=== PATIENT | male | born 1955 | race Caucasian/White ===

== ENCOUNTER 2025-01-01 17:15 | Inpatient (IN) | payer MEDICARE, OTHER ==
[~2025-01-01] VITALS: Ht 185.4 cm; Wt 133.5 kg
[2025-01-01 18:00] LABS: BASOPHILS 0.7 % (0-2); EOSINOPHILS 6.8 % (0-6); HEMATOCRIT 46.1 % (35.0-50.0); HEMOGLOBIN 15.8 g/dL (12.0-18.0); MCH 31.7 (27-36); MCHC 34.2 g/dl (30-36); MCV 92.7 fl (81-99); MONOCYTES 12.8 % (0-12); NEUTROPHILS 63.7 % (39-80); PLATELET COUNT 149 K/uL (140-440); RBC 4.97 M/ul (4.3-5.7)
[2025-01-01] MEDS ORDERED: ondansetron HCL 4 MG/2 ML VIAL IV ONE ×2 (18:00→19:15)
[2025-01-01 18:25] LABS: ALBUMIN 3.7 g/dL (3.4-5.0); ALBUMIN/GLOBULIN RATIO 0.93 (1.1-2.4); ANION GAP 15.3 (7-21); BILIRUBIN, TOTAL 1.8 mg/dL (0.2-1.0); BUN/CREATININE RATIO 11.8 (6.0-28.6); CALCIUM 9.3 mg/dL (8.5-10.1); CREATININE, SERUM 1.44 mg/dL (0.70-1.30); POTASSIUM 4.3 mmol/L (3.5-5.1); PROTEIN, TOTAL 7.7 g/dL (6.4-8.2)
[2025-01-01 18:50] LABS: BILIRUBIN, URINE NEGATIVE (negative); BLOOD/HGB, URINE NEGATIVE (Negative); KETONE, URINE NEGATIVE (Negative); LEUK ESTERASE, URINE NEGATIVE (negative); NITRITE, URINE NEGATIVE (negative); PH, URINE 5.5 (5-7)
[2025-01-01] MEDS ORDERED: SODIUM CHLORIDE 0.9% 1,000 ML IV SCH (19:15)
[2025-01-01] MEDS ORDERED: HYDROmorphone HCL 1 MG/ML SYR IV PRN ×2 (20:00→22:00)
[2025-01-01] MEDS ORDERED: LACTATED RINGER'S 1,000 ML IV SCH (22:00)
[2025-01-01] MEDS ORDERED: ondansetron HCL 4 MG/2 ML VIAL IV PRN (22:00)
--- NOTE | 2025-01-01 22:10 | NUR ---
PT ADMITTED TO ROOM 112 VIA STRETCHER FROM ER. PT ABLE TO TRANSFER SELF TO BED. VSS. O x 4. REPORTS GENERALIZED ABD PAIN 05/27. LSC DIM TO BASES. HRR. BT HYPO. ABD OBESE, FIRM, TENDER TO LOWER QUADRANTS. DENIES NAUSEA. NPO. LBM 3 DAYS AGO. DUE TO VOID. RAC IV INFUSING LR @ 125MLS/HR. PRN DILAUDID ADMNISTERED PER EMAR. WARM BLANKET PROVIDED. CALL LIGHT WITHIN REACH.
--- NOTE | 2025-01-02 00:20 | NUR ---
PT SLEEPING SOUNDLY ON LEFT SIDE. APPEARS COMFORTABLE. IVF INFUSING.
--- NOTE | 2025-01-02 02:18 | NUR ---
PT SLEEPING BETWEEN CARE. VSS. ON RA. BT STILL HYPOACTIVE. DENIES ABD PAIN/NAUSEA AT THIS TIME. NPO. IVF INFUSING.
--- NOTE | 2025-01-02 04:09 | NUR ---
PT CALLED FOR PAIN MED, REPORRTS ABD CRAMPING AND NECK PAIN. MEDICATED W/ PRN IV DILAUDID PER EMAR. DENIES ANY OTHER NEEDS AT THIS TIME.
--- NOTE | 2025-01-02 06:37 | NUR ---
PT SLEEPING SOUNDLY, APPEARS COMFORTABLE. CALL LIGHT WITHIN REACH.
--- NOTE | 2025-01-02 07:05 | NUR ---
REPORT REC'D FROM KATIE ISSA. PT RESTING COMFORTABLY IN BED, O2 IN PLACE, RL INFUSING TO R AC AT 125/HR. CALL BASILIO IN REACH, SIDERAILS UP X2, BED LOW POSITION AND LOCKED.
--- NOTE | 2025-01-02 09:02 | NUR ---
PATIENT IS IN BED AT THIS. LITHOGRAPHY CONTACT WORKER CHARTED VITALS AND I&O'S. CALL LIGHT WITH IN REACH, NOTHING ELSE NEEDED AT THIS TIME.
--- NOTE | 2025-01-02 10:05 | NUR ---
PT REMAINS IN BED, AT BEDSIDE. ENCOURAGED TO GET OOB TO CHAIR. DECLINES AT THIS TIME. PT FEELING BETTER WITH PAIN RATING.
--- NOTE | 2025-01-02 12:05 | NUR ---
PT OOB TO CHAIR. CALL BASILIO IN REACH, O2 IN PLACE AT 1LNC. CALL BASILIO IN REACH, CHAIR LOCKED.
[2025-01-02] MEDS ORDERED: KETOROLAC TROMETHAMINE 30 MG/ML VIAL IV PRN (13:00)
[2025-01-02] MEDS ORDERED: ondansetron HCL 4 MG/2 ML VIAL IV PRN (13:00)
[2025-01-02] MEDS ORDERED: LACTATED RINGER'S 1,000 ML IV SCH (13:00)
[2025-01-02] MEDS ORDERED: FAMOTIDINE 20 MG/ 2 ML VIAL IV SCH (13:01)
--- NOTE | 2025-01-02 13:58 | NUR ---
PT REMAINS IN CHAIR, LINEN CHANGED. PT FEELING RELIEF FROM TORADOL
--- NOTE | 2025-01-02 15:39 | NUR ---
PT CONTINUES TO SIT UP IN THE RECLINER WATCHING TELEVISION, NO C/O VOICED AT THIS TIME.
--- NOTE | 2025-01-02 16:52 | NUR ---
PT IN BED AT THIS TIME. PT DECLINES PAIN MEDICATION. CALL BASILIO IN REACH, BED IN LOW POSITION AND LOCKED.
--- NOTE | 2025-01-02 17:06 | NUR ---
PATIENT IS IN BED AT THIS TIME, HITCH TECHNICIAN CHARTED VITALS, PATIENT IS NPO HAS NOT VIODED. CALL LIGHT WITH IN REACH, NOTHING ELSE NEEDED AT THIS TIME.
--- NOTE | 2025-01-02 17:51 | NUR ---
PT PLEASANT AND COOPERATIVE WITH CARE. PT OOB TO CHAIR X2. MEDICATED X3 FOR NECK,BACK,AND ABDOMINAL PAIN. IV LR INFUSING AT 100ML/HR. PT USING CALL BASILIO APPROPRIATELY. CALL BASILIO IN REACH, BED IN LOW POSITION AND LOCKED.
--- NOTE | 2025-01-02 18:13 | NUR ---
PAIN REASSESSMENT COMPLETED EARLY THIS RN IS RECEIVING ED ADMISSION AT THIS TIME.
--- NOTE | 2025-01-02 19:20 | NUR ---
shift report received from dayshift misa robledo at bedside. pt recently ambulating in hallway, spo2 91% on ra, hr 67. pt back in bed, denies needs or concerns. iv fluids resumed. iv site wnl and infuses wnl. various scars to abd, pt denies nausea. call light in reach and board updated.
--- NOTE | 2025-01-02 19:32 | NUR ---
PT AMBULATED IN CALIX X 1.5 LAPS WITH FWW, SBA. NO CHAUHAN, SPO2 91% ON RA, HR 67
--- NOTE | 2025-01-02 20:50 | NUR ---
ASSESSMENT COMPLETE, SCHEDULED MEDICATION GIVEN-SEE EMAR. pt REPORTS PAIN TO ABD TOLERABLE, DENIES NEED FOR PAIN MEDICATION AT THIS TIME. pt REPORTS PASSING GAS RECENTLY WHILE LAYING ON HIS SIDE IN BED, DENIES NAUSEA. BT ACTIVE. IV SITE WNL, FLUIDS INFUSING DIRECTED. +1 EDEMA NOTED TO BLE, REPORTS BASELINE NUMBNESS AND TINGLING. HEAT PACK TO NECK R/T NECK PAIN FROM NECK STENOSIS PER pt. NO ADDITIONAL NEEDS, CALL LIGHT IN REACH.
--- NOTE | 2025-01-02 21:30 | NUR ---
INFORMED BY FILM DEVELOPER THAT pt REQUESTING PAIN MEDICATION R/T NECK PAIN, THIS RN IN ROOM AND pt RESTING QUIETLY IN BED. ON RA, RR EVEN AND UNLABORED. NO DISTRESS NOTED, pt ALLOWED TO REST, WILL MONITOR. CALL LIGHT IN REACH.
--- NOTE | 2025-01-02 23:28 | NUR ---
REPORT RECEIVED FROM KATIE OGLESBY, ASSUMED CARE OF pt. ROUNDED ON pt. RESTING IN BED AWAKE. NEW BAG IVF INFUSING WNL. URINAL EMPTIED, CONCENTRATED COLOR. CALL LIGHT IN REACH. DENIES ANY NEEDS.
--- NOTE | 2025-01-03 00:01 | NUR ---
PLACED SCD'S ON PATIENT. PATIENT HAD NO NEEDS AT THIS TIME. CALL LIGHT IN REACH.
--- NOTE | 2025-01-03 02:15 | NUR ---
CHECKED ON pt. RESTING IN BED ON LEFT SIDE, BREATHING EQUAL AND UNLABORED. NO DISTRESS NOTED.
--- NOTE | 2025-01-03 03:20 | NUR ---
IV PUMP ALARMING. DISTAL OCCLUSION. SITE FLUSHED WNL. pt SLEEPING, ROLLS OVER, NO DISTRESS NOTED.
[2025-01-03 05:25] LABS: BASOPHILS 1.1 % (0-2); EOSINOPHILS 10.3 % (0-6); HEMATOCRIT 41.1 % (35.0-50.0); HEMOGLOBIN 13.9 g/dL (12.0-18.0); LYMPHOCYTES 18.7 % (24-44); MCH 31.4 (27-36); MCHC 33.7 g/dl (30-36); MONOCYTES 15.2 % (0-12); NEUTROPHILS 54.7 % (39-80); PLATELET COUNT 146 K/uL (140-440); RBC 4.43 M/ul (4.3-5.7); RDW 13.9 (10.5-15.0)
--- NOTE | 2025-01-03 05:35 | NUR ---
pt AWAKENS TO VOICE, VSS. ASSESSMENT COMPLETE. BOWEL TONES HYPOACTIVE, FLATUS PRESENT, ABD SOFT, NON-TENDER WITH PALPATION. pt DENIES TOILETING OR ADDITIOANL NEEDS. IVF INFUSING WNL. CALL LIGHT IN REACH.
[2025-01-03 05:43] LABS: ALBUMIN 2.9 g/dL (3.4-5.0); ALBUMIN/GLOBULIN RATIO 0.94 (1.1-2.4); ANION GAP 13.4 (7-21); BILIRUBIN, TOTAL 1.8 mg/dL (0.2-1.0); BUN/CREATININE RATIO 11.71 (6.0-28.6); CALCIUM 8.8 mg/dL (8.5-10.1); CREATININE, SERUM 1.28 mg/dL (0.70-1.30); POTASSIUM 4.4 mmol/L (3.5-5.1)
--- NOTE | 2025-01-03 07:18 | NUR ---
VERBAL REPORT RECEIVED FROM KATIE MEADE. PT RESTS IN BED WITH EYES CLOSED, RESP EVEN AND UNLABORED.
--- NOTE | 2025-01-03 08:43 | NUR ---
Board has been updated and call light has been placed within reach
--- NOTE | 2025-01-03 11:42 | NUR ---
PT SITS UP IN RECLINER, AWAKE AND ALERT, CALL LIGHT IN REACH, NO REQUESTS AT THIS TIME.
--- NOTE | 2025-01-03 15:56 | NUR ---
PT REPORTS HE HAD A LARGE FORMED/SOFT BM HOWEVER, HE FLUSHED IT AND IT WAS NOT OBSERVED BY STAFF. PT REPORTS FLATUS AND STATES, "I FEEL MUCH BETTER." DENIES NAUSEA OR ABDOMINAL TENDERNESS. PT TOLERATING CLEAR LIQUID DIET WELL. SCDS ON TO BLE FROM KNEES TO ANKLES. CALL LIGHT IN REACH, NO REQUESTS AT THIS TIME.
--- NOTE | 2025-01-03 17:56 | NUR ---
DR. NAPOLES NOTIFIED OF PT PASSING LARGE BM. NEW ORDER RECEIVED TO ADVANCE DIET TO FULL LIQUIDS.
--- NOTE | 2025-01-03 19:58 | NUR ---
in bed, awake, alert and oriented. On room air, clear lungs dim at baes, no cough at this time. abd large soft, LBM today a few minutes ago, medium sized, soft. SCDS to legs off at his request at this time. Generalized edema to hands and feet. no c/o pain. IVF infusing RAC. tolerating full liquid diet, jello given. Pleasant and cooperative
--- NOTE | 2025-01-03 20:57 | NUR ---
CALL LIGHT ANSWERED. pt UP INDEPENDENT TO RESTROOM FOR VOID AND LIQUID BM, pt FLUSHED BEFORE RN IN ROOM. REPORTS BROWN LIQUID STOOL. IVF INFUSING WNL. pt BACK IN BED, CALL LIGHT AND PERSONAL SUPPLIES WITHIN REACH.
--- NOTE | 2025-01-03 21:41 | NUR ---
IN BED, WATCHING TV, C/O 05/27 BACK AND LEG PAIN FROM SPINAL STENOSIS. STATED. MEDICATED WITH TORADOL IV
--- NOTE | 2025-01-03 22:33 | NUR ---
WATCHINGT V, NO C/O PAIN. ivf INFUSING
--- NOTE | 2025-01-04 00:09 | NUR ---
resting, eyes closed, no s/sx distress, on room air, turns and repositions self in bed. IVF infusing
--- NOTE | 2025-01-04 02:39 | NUR ---
Resting, no ss/x distress, IVF infusing, scds off his requests.
--- NOTE | 2025-01-04 05:38 | NUR ---
AWAKENS EASILY, ON ROOM AIR, NO C/O PAIN AT THIS TIME. UP TO brp, VOIDED LARGE AMOUNT qs MEDIUM YELLOW COLORED URINE. ivf INFUSING, BACK TO BED, INDEPENDENT WITH MINIMUM OF ASSIST. TOLERATING LIQUIDS WELL, NO C/O N/V. CURRENTLY AWAKE, WAS WALKING IN ROOM, SITTING EDGE OF BED
--- NOTE | 2025-01-04 07:02 | NUR ---
VERBAL REPORT RECEIVED FROM KATIE ISRAEL. PT RESTS IN BED WITH EYES CLOSED, RESP EVEN AND UNLABORED.
--- NOTE | 2025-01-04 08:14 | NUR ---
PATIENT IN CHAIR AT THIS TIME. QUARRYING MANAGER WENT INTO PATIENTS ROOM FOR HOURLY ROUNDS. QUARRYING MANAGER ASSISTED PATIENT TO CHAIR. CALL LIGHT WITHIN REACH, NO FURTHER NEEDS AT THIS TIME.
--- NOTE | 2025-01-04 08:28 | NUR ---
PATIENT SALINE LOCKED TO GO TO X-RAY WITH LANE VIA WHEELCHAIR.
--- NOTE | 2025-01-04 09:17 | NUR ---
UR CLINICAL REVIEW: 2 MN FOR VERSALUS-PER REVIEW MEETS INPT CRITERIA FOR SBO WITH NEED FOR MONITORING/SERIAL IMAGING MEDICARE INPT 01/02/25 @ 1302 ORDER MATCHES REG NO AUTH REQUIRED PER MEDICARE GUIDELINES DISCHARGE TO HOME WHEN STABLE. ANTICIPATE 24-48 HRS
--- NOTE | 2025-01-04 09:33 | NUR ---
PATIENT IN BED AT THIS TIME. SECRETARY OFFICE CLERK CHARTED VITALS AND I7O'S. PATIENT IS GOING TO CALL WHEN HE WANTS TO TAKE A SHOWER. CALL LIGHT WITHIN REACH, NO FURTHER NEEDS AT THIS TIME.
--- NOTE | 2025-01-04 09:47 | NUR ---
DR. NAPOLES INTO SEE PT.
--- NOTE | 2025-01-04 11:20 | NUR ---
PUDDING, CRACKERS AND MILK PROVIDED TO PT PER REQUESTS.
--- NOTE | 2025-01-04 12:39 | NUR ---
VISITED DURING SPIRITUAL CARE ROUNDS. PT IN OVERALL GOOD SPIRITS, STATES FEELING MUCH BETTER, READY TO GO HOME. BACK STAYER PROVIDED SUPPORTIVE PRESENCE, RELAYED REQUEST FOR INFORMATION TO MEDICAL CARE TEAM, PROVIDED PRAYER, FACILITATED INTERACTION WITH THERAPY ANIMAL. PT EXPRESSED NEDA, GRATITUDE.
--- NOTE | 2025-01-04 12:48 | NUR ---
PT EATS 100% OF LUNCH -LOW FIBER DIET, TOLERATES THIS WELL, DENIES NAUSEA OR ABDOMINAL DISCOMFORT AT THIS TIME. DISCUSSED POC. NO FURTHER QUESTIONS A THIS TIME.
[2025-01-04 13:12] VITALS: BP 148/73
--- NOTE | 2025-01-04 13:13 | NUR ---
PATIENT IN BED AT THIS TIME. CVT RN CHARTED VITALS AND I&O'S. CALL LIGHT WITHIN REACH, NO FURTHER NEEDS AT THIS TIME.
--- NOTE | 2025-01-04 14:00 | NUR ---
Spoke with Gwyn. He states he lives in [place], he cannot remember his street address as he states he just moved. He will get the address from his SO. Pt denies use of DME. States he has a bad back and stenosis. He sees Dr. Wood, but also [facility] in [place]. Pt would like a hospital bed as he states its the best he's slept in a long time. I asked him to discuss this with his PCP. He states he has and Dr. Wood asked him to get further documentation from his back specialist. Pt denies needs, but states concern for food. He does get food stamps and his so works. I gave him a list of the food [place]anto in our area and the phone number for [employer]. He plans on dc to home when cleared medically.
--- NOTE | 2025-01-04 15:45 | NUR ---
PT SITS UP IN BED, AWAKE AND ALERT, SPOUSE AT BEDSIDE. NO REQUESTS AT THIS TIME.
--- NOTE | 2025-01-04 16:08 | NUR ---
Notified by fountain operator, pt SO was here and states she can drive back and forth as gas tank is on E. I asked them to send him by taxi if he is discharged today. I also asked staff to get his street address as there is only a po box in his chart. Pt cannot remember his address as he just moved there.
--- NOTE | 2025-01-04 16:10 | NUR ---
DR. NAPOLES CONTACTED VIA PHONE, UPDATE ON PT TOLERANCE OF LOW FIBER DIET PROVIDED. PT DESIRES TO GO HOME, SPOUSE PRESENT AND READY TO TRANSPORT. DISCHARGE ORDERS RECEIVED. DISCUSSED DISCHARGE INSTRUCTIONS WITH PT AND SPOUSE, BOTH VERBALIZE UNDERSTANDING. IV REMOVED TIP INTACT, GAUZE AND COBAN DRESSING APPLIED TO SITE, PT TOLERATED WELL. PT DRESSES SELF. PT LEAVES MED-SURG AMBULATORY WITH SPOUSE IN NO APPARENT DISTRESS, ESCORTED BY KATIE LAZO.
== END 2025-01-04 14:10 | disposition home or self-care (01) | DRG 387 ==
LOC: ED 17:15 → MS 17:16
PROVIDERS: Emergency Medicine; ADMIT Surgery; ATTEND Surgery
DX: K50.912 Crohn's disease, unspecified, with intestinal obstruction (principal); G89.29 Other chronic pain; M54.2 Cervicalgia; E66.9 Obesity, unspecified; I87.8 Other specified disorders of veins; K43.9 Ventral hernia without obstruction or gangrene; Z90.49 Acquired absence of other specified parts of digestive tract
CPT/HCPCS: 36415; 74019; 74177; 80053; 81003; 83690; 85025; 96376; G0378; J1171; J1885; J2405; J7030; J7121; Q9967

== ENCOUNTER 2025-02-15 09:00 | Inpatient (IN) | payer MEDICARE, OTHER ==
[~2025-02-15] VITALS: Ht 185.4 cm; Wt 131.1 kg
[~2025-02-15 09:00] MED LIST: OXYCODONE HCL5 MG PO
[2025-02-15] MEDS ORDERED: KETOCONAZOLE120 ML TOP (13:02)
[2025-02-15] MEDS ORDERED: KETOCONAZOLE15 GM TOP (13:02)
[2025-02-15] MEDS ORDERED: CLOBETASOL PRO118 ML TOP (13:02)
[2025-02-15] MEDS ORDERED: SODIUM CHLORIDE 0.9% 1,000 ML IV PRN (13:15)
[2025-02-15] MEDS ORDERED: ondansetron HCL 4 MG/2 ML VIAL IV ONE ×2 (13:15→14:00)
[2025-02-15 13:26] LABS: BASOPHILS 0.2 % (0-2); EOSINOPHILS 0.2 % (0-6); HEMATOCRIT 51.5 % (35.0-50.0); HEMOGLOBIN 17.5 g/dL (12.0-18.0); LYMPHOCYTES 3.5 % (24-44); MCV 91.3 fl (81-99); MONOCYTES 6.2 % (0-12); NEUTROPHILS 89.9 % (39-80); PLATELET COUNT 150 K/uL (140-440); RBC 5.64 M/ul (4.3-5.7)
[2025-02-15 13:41] LABS: ALBUMIN 4.2 g/dL (3.4-5.0); ALBUMIN/GLOBULIN RATIO 1.08 (1.1-2.4); ANION GAP 13.2 (7-21); BILIRUBIN, TOTAL 2.2 mg/dL (0.2-1.0); CALCIUM 10.4 mg/dL (8.5-10.1); CREATININE, SERUM 1.2 mg/dL (0.70-1.30); POTASSIUM 4.2 mmol/L (3.5-5.1); PROTEIN, TOTAL 8.1 g/dL (6.4-8.2)
[2025-02-15] MEDS ORDERED: HYDROmorphone HCL 1 MG/ML SYR IV ONE (14:00)
[2025-02-15 15:44] LABS: BILIRUBIN, URINE NEGATIVE (negative); BLOOD/HGB, URINE NEGATIVE (Negative); KETONE, URINE NEGATIVE (Negative); LEUK ESTERASE, URINE NEGATIVE (negative); NITRITE, URINE NEGATIVE (negative)
[2025-02-15] MEDS ORDERED: HYDROmorphone HCL 1 MG/ML SYR IV PRN ×2 (17:00→20:30)
[2025-02-15] MEDS ORDERED: LACTATED RINGER'S 1,000 ML IV SCH (17:00)
[2025-02-15] MEDS ORDERED: ondansetron HCL 4 MG/2 ML VIAL IV PRN ×2 (17:00→22:15)
[2025-02-15 18:48] VITALS: BP 120/85
--- NOTE | 2025-02-15 18:55 | NUR ---
PT ARRIVED TO THE MED SURG ROOM 113 VIA STRETCHER, PT ABLE TO AMBULATE TO BED, SBA W/O DIFFICULTY. NG HOOKED UP TO INTERMIT WALL SUCTION. VSS. BOWEL SOUNDS ACTIVE BILAT UPPER, ABSENT BILAT LOWER. CALL LIGHT IN REACH.
--- NOTE | 2025-02-15 19:25 | NUR ---
REPORT RECEIVED FROM DAY SHIFT RN. PT LYING IN BED ALERT AND ORIENTED. REPORTS ABD PAIN 04/27. PRN FOR PAIN ADMIN PER EMAR. IVF INFUSING PER ORDER. NO FURTHER NEEDS. WHITE BOARD UPDATED. CALL LIGHT IN REACH.
--- NOTE | 2025-02-15 20:10 | NUR ---
CRITICAL LAB VALUE RECEIVED. MD NOTIFIED. NEW TELEPHONE ORDERS RECEIVED VERIFIED WITH READBACK METHOD.
[2025-02-15] MEDS ORDERED: HEParin SOD (PORCINE) 5,000 UNIT/ML SDV SUB-Q ONE (20:30)
--- NOTE | 2025-02-15 20:40 | NUR ---
ADMISSION COMPLETE. EVENING ASSESSMENT COMPLETE. SCHEDULED MEDS ADMIN PER EMAR. PT REPORTS ABD PAIN TOLERABLE. DENIES NAUSEA. NGT TO LIWS WITH PINK DRAINAGE. PT REPORTS HAVING RED JELLO. BOWEL TONES RARE. ABD SLIGHTLY DISTENDED. PT DENIES FLATUS. NEW 20G IV PLACED IN RIGHT UPPER ARM WITH ONE ATTEMPT BY THIS RN. IVF INFUSING PER ORDER. TELE #6 AND SCD'S PLACED. PT ORIENTED TO ROOM AND NURSE CALL LIGHT. NO QUESTIONS OR CONCERNS AT THIS TIME. CALL LIGHT IN REACH.
[2025-02-15 20:53] VITALS: BP 106/89
[2025-02-15 20:57] VITALS: BP 106/89
--- NOTE | 2025-02-15 21:50 | NUR ---
CRITICAL LAB VALUE RECEIVED. MD ON FLOOR AND NOTIFIED. NO ORDERS AT THIS TIME.
[2025-02-15] MEDS ORDERED: PROCHLORPERAZINE EDISYLATE 10 MG/2 ML VIAL IV PRN (22:15)
[2025-02-15] MEDS ORDERED: ACETAMINOPHEN 325 MG TAB PO PRN (22:15)
[2025-02-15] MEDS ORDERED: ACETAMINOPHEN 650 MG SUPP PR PRN (22:15)
--- NOTE | 2025-02-15 22:20 | NUR ---
PT REPORTS ABD PAIN 04/27. PRN FOR PAIN ADMIN PER EMAR. NO FURTHER NEEDS.
[2025-02-16] VITALS (10 sets, daily range): BP systolic 99–138; BP diastolic 52–72
--- NOTE | 2025-02-16 00:08 | NUR ---
PT UP TO SIDE OF BED TO VOID 175 ML CONCENTRATED URINE. BACK TO BED, MUSHTAQ WELL. SCD'S IN PLACE. NGT TO LIWS WITH DARK BROWN DRAINAGE. HOB ELEVATED. NO FURTHER NEEDS. CALL LIGHT IN REACH. BED ALARM FOR SAFETY.
--- NOTE | 2025-02-16 02:24 | NUR ---
PT RESTING WITH EYES CLOSED. AWAKENS EASILY. VS AND I&O OBTAINED. SpO2 88% ON RA. 2L/NC PLACED. PT UP TO SIDE OF BED TO VOID 200 ML CONCENTRATED URINE. GAIT STEADY. BACK TO BED, MUSHTAQ WELL. REPORTS ABD PAIN /. PRN FOR PAIN ADMIN PER EMAR. DENIES NAUSEA. NEW BAG IVF INFUSING PER ORDER. NO FURTHER NEEDS. BED ALARM FOR SAFETY. CALL LIGHT IN REACH.
--- NOTE | 2025-02-16 04:26 | NUR ---
PT RESTING IN BED WITH EYES CLOSED. RESPIRATIONS EVEN. CALL LIGHT IN REACH.
[2025-02-16 05:30] LABS: BASOPHILS 0.3 % (0-2); EOSINOPHILS 2.1 % (0-6); HEMATOCRIT 42.1 % (35.0-50.0); HEMOGLOBIN 14.3 g/dL (12.0-18.0); LYMPHOCYTES 17.9 % (24-44); MCH 31.2 (27-36); MCHC 33.9 g/dl (30-36); MCV 92.1 fl (81-99); MONOCYTES 12.6 % (0-12); NEUTROPHILS 67.1 % (39-80); PLATELET COUNT 128 K/uL (140-440); RBC 4.58 M/ul (4.3-5.7)
--- NOTE | 2025-02-16 05:45 | NUR ---
CCU ALERTED PT HR LOW 34. PT AWAKE IN BED. VS OBTAINED, WNL. PT UP TO SIDE OF BED TO VOID. REPORTS SLIGHT DIZZINESS UPON STANDING. BACK TO BED. NO C/O PAIN OR NAUSEA. NGT TO LIWS WITH DARK BROWN DRAINAGE. BOWEL TONES ACTIVE IN UPPER QUADRANTS, HYPO IN LOWER. PT REPORTS PASSING GAS X 2 SMALL AMOUNTS. NO FURTHER NEEDS AT THIS TIME. CALL LIGHT IN REACH.
[2025-02-16 05:52] LABS: ANION GAP 9.5 (7-21); BILIRUBIN, TOTAL 1.9 mg/dL (0.2-1.0); BUN/CREATININE RATIO 13.95 (6.0-28.6); CALCIUM 8.7 mg/dL (8.5-10.1); CREATININE, SERUM 1.29 mg/dL (0.70-1.30); MAGNESIUM 2.2 mg/dL (1.8-2.4); PHOSPHORUS, INORGANIC 3.4 mg/dL (2.5-4.9); POTASSIUM 4.5 mmol/L (3.5-5.1)
--- NOTE | 2025-02-16 06:30 | NUR ---
MD UPDATED REGARDING MORNING LAB RESULTS AND PT HR.
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
[2025-02-16] MEDS ORDERED: DEXTROSE 5% - LACTATED RINGERS 1,000 ML IV SCH (07:00)
--- NOTE | 2025-02-16 07:19 | NUR ---
RECIEVED SHIFT REPORT. PT IS AWAKE IN BED, HAS CONCERNS ABOUT HEART ISSUE AND RECIEVING PAIN MEDICATIONS. IF HIS HEART WILL INTERFERE WITH GETTING THEM. REASSURED PT THAT WE ARE MONITORING HIS HEART WILL MONITOR WHEN RECIEVING MEDICATIONS AND WE ARE ALSO MONITORING HIS OXYGEN STATUS. PT IS REQUESTING PAIN MEDICATION AT THIS TIME. WILL LOOK OVER MEDICATIONS. CALL LIGHT IN REACH.
[2025-02-16] MEDS ORDERED: TIZANIDINE HCL2 MG PO (07:50)
[2025-02-16] MEDS ORDERED: TRIAMCINOLONE A15 GM TOP (07:51)
--- NOTE | 2025-02-16 07:56 | NUR ---
MORNING ASSESSMENT COMPLETE. PRN PAIN MEDICATION ADMINSITERED (PER EMAR) FOR 5/10 ABD PAIN. PT OTHERWISE RESTING COMFORTABLY IN BED. BOWEL TONES ACTIVE BILAT UPPER, HYPOACTIVE BILAT LOWER, TENDER. PT IS ON 2L NC FOR OXYGEN NEEDS WHEN GIVEN DILAUDID WHILE AT REST, SPO2 96% AT THIS TIME. IVF INFUSING AT THIS TIME. CALL LIGHT IN REACH. PT UPDATED ON ULTRASOUND COMING THIS MORNING.
--- NOTE | 2025-02-16 08:03 | NUR ---
PATIENT IN BED AT THIS TIME. TAVERN CAR ATTENDANT DID HOURLY ROUNDS. CALL LIGHT WITHIN REACH, NO FURTHER NEEDS AT THIS TIME.
[2025-02-16 08:28] LABS: INR 1.08 (0.80-1.30)
[2025-02-16] MEDS ORDERED: ENOXAPARIN SODIUM 40 MG/0.4 ML SYR SUB-Q SCH (09:00)
[2025-02-16] MEDS ORDERED: PANTOPRAZOLE SODIUM 40 MG/10 ML VIAL IV SCH (09:00)
--- NOTE | 2025-02-16 09:28 | NUR ---
UR CLINICAL REVIEW: 2 MN FOR VERSALUS-PER BLIND CLEANER MEETS INPT CRITERIA FOR SBO WITH [facility] MEDICARE INPT 02/15/25 @ 2208 ORDER MATCHES REG NO AUTH REQUIRED PER MEDICARE GUIDELINES DISCHARGE TO HOME WHEN STABLE
--- NOTE | 2025-02-16 09:35 | NUR ---
PATIENT IN BED AT THIS TIME. MANAGER OF CORPORATE COMMUNICATIONS CHARTED VITALS AND I&O'S. CALL LIGHT WITHIN REACH, NO FURTHER NEEDS AT THIS TIME.
--- NOTE | 2025-02-16 09:50 | NUR ---
PATIENT IN BED, METAL BUFFER EMPTIED PATIENTS NG TUBE CANNISTER. CALL LIGHT WITHIN REACH, ULTRASOUND IN AT THIS TIME, NO FURTHER NEEDS.
--- NOTE | 2025-02-16 12:16 | NUR ---
MED REC COMPLETE
--- NOTE | 2025-02-16 13:46 | NUR ---
PATIENT IN BED AT THIS TIME. PUMP SERVICER CHARTED VITALS AND I&O'S. CALL LIGHT WITHIN REACH, NO FURTHER NEEDS AT THIS TIME.
--- NOTE | 2025-02-16 14:20 | NUR ---
pt requested pain medication for 5/10 abd pain, adminsitered (per emar). physical therapy in room to work with pt. at bedside. call light in reach.
--- NOTE | 2025-02-16 14:30 | NUR ---
Spoke with pt. He cont. to live in a [place] with his SO. They are both retired and she drives him to appt. He does not use any DME. He cont. with an NG tube in place. He would like a walker as he uses his SO. He states finances are getting tighter. He does receive food stamps, but is over income for most services. I will ask Dr. Deleon for a PT/OT order to check if he qualifies for a walker. Pt plans on dc to home when medically cleared.
--- NOTE | 2025-02-16 16:46 | NUR ---
PATIENT IN BED AT THIS TIME. THIS SEAM STEAMER WENT INTO PATIENTS ROOM FOR HOURLY ROUNDS. CALL LIGHT WITHIN REACH, NO FURTHER NEEDS AT THIS TIME.
--- NOTE | 2025-02-16 17:12 | NUR ---
pt hr cont. to drop in the 30's on tele - this rn call to ms charge to check on pt. charted hr.
--- NOTE | 2025-02-16 17:25 | NUR ---
REPORT RECIEVED FROM KATIE SIMON. PT LAYING IN BED WITH NG TUBE IN PLACE. PT HAS NO CURRENT CONCERNS AT THIS TIME. PT HAS CALL LIGHT IN REACH. PT IS CURRENTLY TELE #6. PT IS OLIVERIO IN THE LOWER 40'S WITH NO CONCERNS AND REPORT SAID THAT HAS BEEN HIS BASE LINE.
--- NOTE | 2025-02-16 18:01 | NUR ---
SPOKE WITH DR NAPOLES ON PHONE, PT AMB IN CALIX WITH FAMILY, DENIES NEEDS. AWARE OF VOID, ELIZABETH WNL - TRENDING TO STRAW COLOR,
--- NOTE | 2025-02-16 18:05 | NUR ---
PATIENT IN BED AT THIS TIME. ALLIANCE DIRECTOR CHARTED VITALS AND I&O'S. CALL LIGHT WITHIN REACH, NO FURTHER NEEDS AT THIS TIME.
--- NOTE | 2025-02-16 18:19 | NUR ---
PT CALLED CONCERNING PAIN IN THEIR ABD 6-10 PT GIVEN PRN DILAUDED (SEE EMAR). PT HAS NO OTHER CONCERNS AT THIS TIME CALL LIGHT IN REACH.
--- NOTE | 2025-02-16 19:28 | NUR ---
REPORT RECEIVED FROM DAY SHIFT RN. PT LYING IN BED ALERT AND ORIENTED. DENIES NEEDS. WHITE BOARD UPDATED. CALL LIGHT IN REACH.
--- NOTE | 2025-02-16 20:09 | NUR ---
SO JOSE ARMANDO CALLED AND ASKED TO BE TRANSFERRED TO pt ROOM, pt OKAY'D AND JOSE ARMANDO NOW TALKING TO pt VIA ROOM PHONE. pt DENIES NEEDS OR CONCERNS WHEN ASKED. CALL LIGHT IN REACH. PRIMARY RN UPDATED.
--- NOTE | 2025-02-16 21:11 | NUR ---
EVENING ASSESSMENT COMPLETE. NO C/O PAIN OR NAUSEA AT THIS TIME. NGT TO LIWS WITH DARK BROWN DRAINAGE. BOWEL TONES HYPOACTIVE. PT REPORTS FLATUS X 1. ABD SOFT AND DISTENDED. UP TO SIDE OF BED TO VOID 325 ML CONCENTRATED URINE. BACK TO BED, MUSHTAQ WELL. SCD'S IN PLACE. VS AND I&O OBTAINED. TELE #6. SINUS OLIVERIO. PT ON 2L/NC. SpO2 96%. CPOX AT BEDSIDE. HOB >30 DEGREES. PT DENIES QUESTIONS OR CONCERNS. CALL LIGHT IN REACH.
--- NOTE | 2025-02-16 23:38 | NUR ---
PT RESTING IN BED WITH EYES CLOSED. RESPIRATIONS EVEN. CALL LIGHT IN REACH.
[2025-02-17] VITALS (9 sets, daily range): BP systolic 117–150; BP diastolic 51–81
--- NOTE | 2025-02-17 02:05 | NUR ---
VS OBTAINED, WNL. PT REMAINS OLIVERIO. ASYMPTOMATIC. UP TO SIDE OF BED TO USE URINAL WITH SBA. BACK TO BED, MUSHTAQ WELL. ASSESSMENT COMPLETE. FINE CRACKLES NOTED IN BILAT LOWER LUNG BASES. INCENTIVE SPIROMETER PROVIDED WITH EDUCATION. PT DEMONSTRATED PROPER USE. WARM BLANKET PROVIDED. NO FURTHER NEEDS.
--- NOTE | 2025-02-17 03:49 | NUR ---
IV PUMP ALARMING. NEW BAG IVF INFUSING WNL. PT LYING IN BED RESTING WITH EYES CLOSED. SNORING SOFTLY. SpO2 93% WITH 2L/NC. HR 38-40 PER TELE #6. CALL LIGHT IN REACH.
--- NOTE | 2025-02-17 05:30 | NUR ---
LAB IN FOR MORNING DRAW. VS AND I&O OBTAINED. NO C/O PAIN OR NAUSEA AT THIS TIME. ASSISTED PT TO REPOSITION. NO FURTHER NEEDS.
[2025-02-17 05:45] LABS: BASOPHILS 0.3 % (0-2); EOSINOPHILS 3.6 % (0-6); HEMATOCRIT 39.4 % (35.0-50.0); HEMOGLOBIN 13.4 g/dL (12.0-18.0); MCH 31.1 (27-36); MCHC 33.9 g/dl (30-36); MCV 91.9 fl (81-99); MONOCYTES 12.9 % (0-12); NEUTROPHILS 66.2 % (39-80); PLATELET COUNT 111 K/uL (140-440); RBC 4.29 M/ul (4.3-5.7)
[2025-02-17 06:01] LABS: ALBUMIN 2.7 g/dL (3.4-5.0); ALBUMIN/GLOBULIN RATIO 0.93 (1.1-2.4); ANION GAP 7.8 (7-21); BILIRUBIN, TOTAL 1.9 mg/dL (0.2-1.0); BUN/CREATININE RATIO 11.53 (6.0-28.6); CALCIUM 8.3 mg/dL (8.5-10.1); CREATININE, SERUM 1.04 mg/dL (0.70-1.30); MAGNESIUM 1.9 mg/dL (1.8-2.4); PHOSPHORUS, INORGANIC 2.5 mg/dL (2.5-4.9); POTASSIUM 3.8 mmol/L (3.5-5.1); PROTEIN, TOTAL 5.6 g/dL (6.4-8.2)
--- NOTE | 2025-02-17 07:23 | NUR ---
REPORT RECEIVED FROM KATIE LINTON. PT RESTING ON L SIDE, RR EVEN AND UNLABORED. IVF INFUSING WNL. CALL LIGHT AND PERSONAL BELONGINGS IN REACH.
[2025-02-17] MEDS ORDERED: ATROPINE SULFATE 1 MG/10 ML SYR IV PRN (08:00)
--- NOTE | 2025-02-17 08:21 | NUR ---
QUAD SWAB COLLECTED AND SENT TO LAB.
--- NOTE | 2025-02-17 08:29 | NUR ---
MEDICATION ADMINISTERED, SEE MAR. IMAGING ARRIVES. PT REMAINS RESTING IN BED AT THIS TIME, IMAGING REMAINS IN ROOM.
[2025-02-17 09:01] LABS: INFLUENZA B NAA NEGATIVE (NEGATIVE); RESPIRATORY SYNCYTIAL VIR NAA NEGATIVE (NEGATIVE)
--- NOTE | 2025-02-17 09:11 | NUR ---
ASSESSMENT COMPLETE. PT RESTING IN BED REPORTING BACK PAIN 03/27. NG TUBE DISCONNECTED AND LOCKED AT THIS TIME FOR IMAGING TO UTILIZE FOR CONTRAST. HEART RATE OLIVERIO AT 40 ON TELE #6. PT ASYMPTOMATIC OF THIS. REPORTS CHRONIC NUMBNESS OF BILAT FINGERS AND BILAT FEET WHICH HE RELATES TO HIS SPINAL STENOSIS. PT BOWEL TONES ARE ACTIVE IN ALL QUADRANTS EXCEPT RLQ, WHICH IS HYPOACTIVE. MODERATEDLY DISTENDED, TENDER TO PALPATION THROUGHOUT. PT DENIES NAUSEA OR DISCOMFORT. SCDs IN PLACE, PT DENIES FEELING TO MIDWAY OF SHINS ON BILAT LEGS. IVF INFUSING TO R FOREARM WNL, IV FLUSHES WNL. IMAGING ARRIVES FOR STUDIES. IMAGING REMAINS WITH PT AT THIS TIME.
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
--- NOTE | 2025-02-17 11:00 | NUR ---
PATIENT WAS IN BED AT THIS TIME, PRE ALGEBRA TEACHER CHARTED OUTPUT, CALL LIGHT WITH IN REACH AND NOTHING ELSE NEEDED AT THIS TIME.
--- NOTE | 2025-02-17 11:09 | NUR ---
MD CHAN IN TO SEE PT. ALL QUESTIONS AND CONCERNS ANSWERED AND ADDRESSED.
--- NOTE | 2025-02-17 11:20 | NUR ---
PT NOT AVAILABLE FOR VISIT. PROVIDED PRAYER.
--- NOTE | 2025-02-17 11:40 | NUR ---
Spoke with Gwyn's SO. Dr. Deleon is discussing tansfer with her while pt has a test. Plan for pt to transfer due to his heart block.
--- NOTE | 2025-02-17 12:42 | EKG ---
[facility] [address] [facility] [place], [place] [address] Signed Sinus rhythm Left anterior fascicular block Possible Anterior infarct , age undetermined Abnormal ECG No previous ECGs available Confirmed by Ad Cevallos DO ([id number]) on 02/17/2025 12:42:03 PM Electronically Signed By: AD CEVALLOS DO 02/17/25 1242 PATIENT NAME: JACKELINEERNA Electrocardiogram DATE OF : 55 PHYSICIAN: AD CEVALLOS DO REPORT #: [id number] REPORT IS CONFIDENTIAL AND NOT TO BE RELEASED WITHOUT AUTHORIZATION
--- NOTE | 2025-02-17 12:43 | EKG ---
[facility] [address] [facility] [place] [address] Signed Marked sinus bradycardia with 1st degree AV block Left axis deviation Nonspecific intraventricular block Nonspecific T wave abnormality Abnormal ECG When compared with ECG of 15-FEB-2025 19:44, (Unconfirmed) Previous ECG has undetermined rhythm, needs review QT has shortened Confirmed by Iain Cevallos DO ([id number]) on 02/17/2025 12:43:21 PM Electronically Signed By: IAIN CEVALLOS DO 02/17/25 1243 PATIENT NAME: ERNA VIVEROS Electrocardiogram DATE OF : 55 PHYSICIAN: IAIN CEVALLOS DO REPORT #: [id number] REPORT IS CONFIDENTIAL AND NOT TO BE RELEASED WITHOUT AUTHORIZATION
--- NOTE | 2025-02-17 12:55 | NUR ---
IMAGING IN ROOM.
--- NOTE | 2025-02-17 13:10 | NUR ---
PT RESTING IN BED WATCHING TELEVISION. NO COMPLAINTS OR REQUESTS. REPORTS HE IS FEELING MUCH IMPROVED AFTER HAVING A BOWEL MOVEMENT. CALL LIGHT AND PERSONAL BELONGINGS IN REACH.
--- NOTE | 2025-02-17 13:41 | NUR ---
MD CHAN NOTIFIED OF PTs COMPLETED SBO IMAGING. GIVES VERBAL ORDERS OVER THE PHONE, VERIFIED WITH READBACK. ORDERS PLACED.
--- NOTE | 2025-02-17 13:49 | NUR ---
NG TUBE REMOVED ORDERED, PT TOLERATES WELL. PT REQUESTS ICE WATER, CRANBERRY JUICE, AND JELLO - PROVIDED BY KERRY PERALTA. IVF RATE DECREASED TO 75ML/HR. PT HAS NO OTHER REQUESTS, CALL LIGHT AND PERSONAL BELONGINGS IN REACH.
--- NOTE | 2025-02-17 14:26 | NUR ---
PATIENT IN BED AT THIS TIME. STONE CHIMNEY MASON CHARTED VITALS AND I&O'S. CALL LIGHT WITHIN REACH, NO FURTHER NEEDS AT THIS TIME.
--- NOTE | 2025-02-17 15:15 | NUR ---
PT RESTING IN RECLINER WITH BLE ELEVATED AFTER WORKING WITH PHYSICAL THERAPY. PT REPORTS FEELING "REALLY GOOD". BOWEL TONES ARE ACTIVE IN ALL FOUR QUADRANTS, PT DENIES NAUSEA OR DISCOMFORT AFTER TAKING IN CLEAR LIQUIDS. PHYSICAL THERAPY REPORTS TO THIS RN THAT PT HAD A LARGE BOWEL MOVEMENT WHEN WORKING WITH HIM. PT REMAINS ON 2LNC, CPOX AT CHAIR SIDE. LUNG SOUNDS CLEAR THROUGHOUT BUT DIMINISHED TO RLL. HEART SOUNDS HEARD. PT REQUESTS WARM BLANKETS HE IS FEELING COLD, CONTINUES TO REPORT THAT HE HAS FELT COLD FOR THE LAST FEW MONTHS. DISCUSSED WITH PT HIS HEART RATE AND SIDE EFFECTS OF POOR PERFUSION. PT VERBALIZES UNDERSTANDING. PT HAS NO OTHER REQUESTS AT THIS TIME, CALL LIGHT AND PERSONAL BELONGINGS IN REACH.
--- NOTE | 2025-02-17 16:49 | NUR ---
PT AMBULATES WITH SBA AND FWW FROM RECLINER TO BSC, VOIDS, AND THEN TRANSFERS INTO BED. PT TOLERATES WELL, DENIES LIGHTHEADED OR DIZZINESS. PT REPORTING MILD BACK PAIN HE RATES A 5/10, DENIES ANY INTERVENTION AT THIS TIME. 2LNC IN PLACE, CPOX AT BEDSIDE. PTs ARRIVES. PTs UPDATED ON PT STATUS AND PLAN OF CARE PER PT REQUEST. PT HAS NO OTHER REQUESTS AT THIS TIME, CALL LIGHT AND PERSONAL BELONGINGS IN REACH.
--- NOTE | 2025-02-17 17:11 | NUR ---
PT INFORMED HE WILL BE TRANSPORTING TO ANOTHER HOSPITAL VIA AMBULANCE. PT VERBALIZES UNDERSTANDING AND STATES "OH GOOD, I'M EXCITED." NO REQUESTS AT THIS TIME, IN ROOM ON PHONE, CALL LIGHT AND PERSONAL BELONGINGS IN REACH.
--- NOTE | 2025-02-17 17:54 | NUR ---
PT AMBULATES WITH SBA ONLY TO WAITING EMS STRETCHER. WARM BLANKETS APPLIED, PTs PERSONAL PILLOWS WITH HIM ON THE STRETCHER. PTs HAS ALL PT BELONGINGS. REPORT CALLED TO MILLER AT [facility], ALL QUESTIONS ANSWERED. PT ESCORTED TO WAITING AMBULANCE BY [facility] AND [facility].
[2025-02-18 06:23] LABS: THYROXINE FREE 0.8 ng/dL (0.9-1.7)
[2025-02-18] MEDS ORDERED: PANTOPRAZOLE SODIUM 40 MG TABEC PO SCH (09:00)
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
== END 2025-02-17 17:45 | disposition short-term general hospital (02) | DRG 389 ==
LOC: ED 09:00 → MS 17:53
PROVIDERS: Emergency Medicine; Student in an Organized Health Care Education/Training Program; ADMIT Colon & Rectal Surgery; ATTEND Colon & Rectal Surgery
PROC: 0D9670Z Drainage of Stomach with Drainage Device, Via Natural or Artificial Opening (ICD-10-PCS; principal; 2025-02-15)
DX: K56.609 Unspecified intestinal obstruction, unspecified as to partial versus complete obstruction (principal); K50.90 Crohn's disease, unspecified, without complications; R00.1 Bradycardia, unspecified; I10 Essential (primary) hypertension; E66.9 Obesity, unspecified; I44.0 Atrioventricular block, first degree; Z68.38 Body mass index [BMI] 38.0-38.9, adult; Z79.899 Other long term (current) drug therapy; Z90.49 Acquired absence of other specified parts of digestive tract; Z79.891 Long term (current) use of opiate analgesic
CPT/HCPCS: 36415; 71045; 74177; 74250; 76705; 80053; 81003; 83605; 83690; 83735; 84100; 84439; 84443; 85025; 85610; 87502; 93005; 93010; 93306; 94762; 96361; 97161; 97530; 97535; 99285-25; J1171; J1644; J1650; J2405; J2470; J7030; J7121; Q9967; U0002

== ENCOUNTER 2025-04-30 22:13 | Emergency (ER) | payer MEDICARE, OTHER ==
[~2025-04-30] VITALS: Ht 185.4 cm; Wt 131.1 kg
[~2025-04-30 22:13] MED LIST changes: +CLOBETASOL PRO118 ML TOP; +KETOCONAZOLE120 ML TOP; +KETOCONAZOLE15 GM TOP; +TIZANIDINE HCL2 MG PO; +TRIAMCINOLONE A15 GM TOP
[2025-04-30] MEDS ORDERED: HYDROmorphone HCL 1 MG/ML SYR IV PRN (23:00)
[2025-04-30] MEDS ORDERED: ondansetron HCL 4 MG/2 ML VIAL IV ONE (23:00)
[2025-04-30 23:04] LABS: BASOPHILS 0.5 % (0.2-1.2); EOSINOPHILS 2.8 % (0.8-7.0); HEMATOCRIT 47.3 % (40.1-51.0); HEMOGLOBIN 15.3 g/dL (13.7-17.5); LYMPHOCYTES 17.9 % (21.8-53.1); MCH 30.7 PG (25.7-32.2); MCHC 32.3 g/dL (32.3-36.5); NEUTROPHILS 67.1 % (34.0-67.9); PLATELET COUNT 162 K/uL (163-337); RBC 4.98 M/uL (4.63-6.08)
[2025-04-30 23:20] LABS: ALBUMIN 3.2 g/dL (3.4-5.0); ALBUMIN/GLOBULIN RATIO 0.84 (1.1-2.4); ANION GAP 11.3 (7-21); BUN/CREATININE RATIO 18.69 (6.0-28.6); CREATININE, SERUM 1.23 mg/dL (0.70-1.30); POTASSIUM 4.3 mmol/L (3.5-5.1)
[2025-05-01 00:14] LABS: BILIRUBIN, URINE NEGATIVE (negative); BLOOD/HGB, URINE NEGATIVE (Negative); KETONE, URINE NEGATIVE (Negative); LEUK ESTERASE, URINE NEGATIVE (negative); NITRITE, URINE NEGATIVE (negative)
[2025-05-01] MEDS ORDERED: HYDROCODON-ACE1 EA10 PO (00:26)
[2025-05-01] MEDS ORDERED: HYDROCODONE BIT/ACETAMINOPHEN 5/325 MG 1 TAB HOME.PACK PO PRN (00:30)
[2025-05-01 00:37] VITALS: BP 121/86
== END 2025-05-01 00:37 | disposition home or self-care (01) ==
LOC: ED 22:13
PROVIDERS: Emergency Medicine
DX: R10.32 Left lower quadrant pain (principal); I10 Essential (primary) hypertension; Z79.899 Other long term (current) drug therapy
CPT/HCPCS: 36415; 74177; 80053; 81003; 83690; 85025; 96375; 99284-25; A9270; J1171; J2405; Q9967